=== PATIENT | female | born 1995 | race African-American/Black ===

== ENCOUNTER 2016-06-07 17:00 | Emergency (ER) | payer MEDICAID ==
[~2016-06-07] VITALS: Ht 172.7 cm; Wt 106.1 kg
[2016-06-07 17:49] LABS: Basophils # (auto) 0 uL; Basophils % (auto) 0.1 % (0.0-2.0); Eosinophils # (auto) 0.4 uL; Eosinophils % (auto) 2.8 % (0.0-7.0); Hematocrit 35.3 % (36.0-46.0); Hemoglobin 11.6 g/dL (12.2-16.2); Lymphocytes # (auto) 1.6 uL; Lymphocytes % (auto) 11.9 % (10.0-50.0); Mean Corpuscular Hemoglobin 28.3 pg (28.0-32.0); Mean Corpuscular Hgb Conc. 32.9 g/dL (32.0-36.0); Mean Platelet Volume 8.8 fL (7.4-10.4); Monocytes # (auto) 0.7 uL; Neutrophils # (auto) 10.7 uL; Neutrophils % (auto) 80.2 % (37.0-80.0); Platelet Count (auto) 282 10^3/uL (140-450); Red Cell Distribution Width 16.3 % (11.6-16.0); White Blood Cell 13.4 10^3/uL (4.4-10.8)
[2016-06-07 19:12] VITALS: BP 121/69
[2016-06-07 19:30] LABS: Urine Bilirubin Negative (Negative); Urine Blood Negative /uL (Negative); Urine Color Yellow (Yellow); Urine Glucose Normal (Normal); Urine Ketone Negative (Negative); Urine Mucus FEW (None Seen); Urine Nitrite Negative (Negative); Urine RBC 3 /hpf (0 - 4); Urine Squamous Epithelial Cell MANY /hpf (<5); Urine Urobilinogen Normal (Negative)
== END 2016-06-07 20:24 | disposition home or self-care (01) ==
LOC: ER 17:00
DX: O20.0 Threatened abortion (principal); O23.42 Unspecified infection of urinary tract in pregnancy, second trimester; Z3A.20 20 weeks gestation of pregnancy
CPT/HCPCS: 36415; 76805; 81001; 84702; 85025

== ENCOUNTER 2016-06-28 22:40 | Observation (INO) | payer MEDICAID | END 2016-06-28 23:40 | disposition home or self-care (01) | DRG 566 | LOC: LDRP 22:40 | PROVIDERS: ADMIT Obstetrics & Gynecology; ATTEND Obstetrics & Gynecology | DX: O36.8120 Decreased fetal movements, second trimester, not applicable or unspecified (principal); Z3A.21 21 weeks gestation of pregnancy | CPT/HCPCS: 59025; 81002; G0378 ==